=== PATIENT | female | born 1950 | race Caucasian/White ===

== ENCOUNTER 2017-01-31 14:34 | Emergency (ER) | payer MEDICAID ==
[2017-01-31 14:44] VITALS: BP 154/70
[2017-01-31] MEDS ORDERED: predniSONE 20 MG TABLET PO STA (15:05)
--- NOTE | 2017-01-31 15:08 | ED Physician Documentation ---
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, she was stung by wasp on the right thumb about an hour and a half ago, she has localized pain and swelling but no shortness of breath, generalized rash, dizziness, nausea, or rhinorrhea.) Review of Systems Constitutional: denies: Fever, Chills Cardiac: denies: Chest pain / pressure, Palpitations Respiratory: denies: Dyspnea, Cough PD PAST MEDICAL HISTORY - Past Medical History Past Medical History: No - Past Surgical History Past Surgical History: Yes /[employer]: Endometrial ablation, Dilation and currettage HEENT: Tonsil/Adenoidectomy - Present Medications Home Medications: Ambulatory Orders Medication Instructions Recorded Confirmed Epinephrine 0.3 mg IJ ONCE PRN #2 auto.injct 01/31/17 predniSONE [Deltasone] 60 mg PO DAILY 3 Days tablet 01/31/17 - Allergies Allergies/Adverse Reactions: Allergies Allergy/AdvReac Type Severity Reaction Status Date / Time No Known Drug Allergies Allergy Verified 01/31/17 14:45 - Social History Does the pt smoke?: No Smoking Status: Never smoker Does the pt drink ETOH?: Yes Does the pt have substance abuse?: No - Immunizations Immunizations are current?: No - POLST Patient has POLST: No PD ED PE NORMAL - Vitals Vital signs reviewed: Yes - General General: Alert and oriented X 3, No acute distress - HEENT HEENT: Pharynx benign - Respiratory Respiratory: No respiratory distress, Clear bilaterally - Extremities Extremities: Other (Mild redness and swelling to the right thumb without retained stinger.) - Neuro Neuro: Alert and oriented X 3, Normal speech - Psych Psych: Normal mood, Normal affect Results - Vitals Vitals: Vital Signs - 24 hr 01/31/17 14:39 Temperature 36.6 C Heart Rate 62 Respiratory 16 Rate Blood Pressure 154/70 H O2 Saturation 100 PD MEDICAL DECISION MAKING - ED course ED course: Despite her history of anaphylaxis, there is no current evidence of anaphylaxis. Departure - Departure Disposition: 01 Home, Self Care Clinical Impression: Local reaction to bee sting Qualifiers: Encounter type: initial encounter Injury intent: accidental or unintentional Qualified Code(s): T63.441A - Toxic effect of venom of bees, accidental ( unintentional), initial encounter Condition: Good Record reviewed to determine appropriate education?: Yes Instructions: ED Bite Sting Insect Local Allergic React Prescriptions: Epinephrine 0.3 mg IJ ONCE PRN #2 auto.injct PRN Reason: Allergy Symptoms predniSONE [Deltasone] 60 mg PO DAILY 3 Days tablet Comments: Your blood pressure was elevated today on check into the emergency department. This does not mean that you have hypertension, it is a common phenomenon to come to the emergency department and have elevated blood pressure. I recommend that she see your primary care physician within the week to have it rechecked when you are feeling better.
[2017-01-31] MEDS ORDERED: predniSONE 20 MG TABLET ONE (15:15)
== END 2017-01-31 15:14 | disposition home or self-care (01) ==
LOC: ED 14:34
DX: T63.441A Toxic effect of venom of bees, accidental (unintentional), initial encounter (principal); R22.9 Localized swelling, mass and lump, unspecified; R03.0 Elevated blood-pressure reading, without diagnosis of hypertension
CPT/HCPCS: 99283; J7512

== ENCOUNTER 2017-06-06 08:30 | Outpatient (CLI) | payer MEDICAID ==
--- NOTE | 2017-06-06 13:52 | Ultrasound Report ---
LEFT BREAST ULTRASOUND: 06/06/2017 CLINICAL INDICATION: Palpable abnormality left upper outer quadrant. TECHNIQUE: Real-time scanning was performed with retail field representative static images obtained. FINDINGS: Ultrasound of the palpable abnormality identified by the patient was performed. Unremarkable parenchymal lobules are seen. No discrete solid or cystic lesion is appreciated. No sonographically suspicious findings are seen. IMPRESSION: NEGATIVE EXAMINATION. RECOMMENDATION: Routine annual screening unless otherwise clinically indicated. BIRADS CATEGORY 1-NEGATIVE. TD: 06/06/2017 13:51
--- NOTE | 2017-06-06 18:21 | Mammography Report ---
DIGITAL DIAGNOSTIC BILATERAL MAMMOGRAM: 06/06/2017 CLINICAL INDICATION: Palpable abnormality left upper-outer quadrant on clinical exam. TECHNIQUE: Bilateral CC, laterally exaggerated CC, MLO, left true lateral views were obtained. A marker was placed at the site of palpable abnormality identified by the patient in the left upper outer quadrant. COMPARISON: 02/12/2015, 11/03/2010. FINDINGS: The breasts demonstrate scattered fibroglandular densities bilaterally. No suspicious masses, clustered microcalcifications, or regions of architectural distortion are identified. Specifically, no mammographic abnormality is appreciated in the left upper outer quadrant, at the site of palpable abnormality identified by the patient. Please also refer to left breast ultrasound of the same day. IMPRESSION: NEGATIVE EXAMINATION. RECOMMENDATION: Routine annual screening unless otherwise clinically indicated. BIRADS category: 1, negative. STANDARD QUALIFYING STATEMENTS 1. This examination was reviewed with the aid of Computed-Aided Detection (CAD). 2. A negative or benign imaging report should not delay biopsy if clinically suspicious findings are present. Consider surgical consultation if warranted. More than 5% of cancers are not identified by imaging. 3. Dense breasts may obscure an underlying neoplasm. TD: 06/06/2017 18:17
== END 2017-06-06 08:31 | disposition home or self-care (01) ==
LOC: DI 08:30
PROVIDERS: ATTEND Family Medicine
DX: N63.21 Unspecified lump in the left breast, upper outer quadrant (principal)
CPT/HCPCS: 76642; 77066

== ENCOUNTER 2018-04-24 12:43 | Outpatient (CLI) | payer MEDICARE, OTHER ==
--- NOTE | 2018-04-26 09:22 | DEXA Report ---
Reason: AGE-RELATED OSTEOPOROSIS W/O CURRENT PATHOLOGICAL Procedure Date: 04/24/2018 Accession Number: [id number] / [id number] Procedure: DEX - Dexa Spine and/or Hip CPT Code: FULL RESULT: EXAM: Dexa Spine and/or Hip DATE: 04/24/2018 1:24 PM CLINICAL HISTORY: AGE-RELATED OSTEOPOROSIS W/O CURRENT PATHOLOGICAL TECHNIQUE: Dual energy x-ray absorptiometry (DXA) was performed on a [employer] System. Regions measured are the AP Spine, femoral neck, and if needed forearm. COMPARISON: None. In accordance with the International Society for Clinical Densitometry (ISCD) guidelines, data from previous exams may be reanalyzed using current recommendations and techniques. This is done to allow a more accurate basis for comparison with the current study. FINDINGS: The data for the lumbar spine is as follows: BMD (g/cm/cm) T-SCORE Z-SCORE REGION L1 0.806 -2.7 -0.9 L2 0.852 -2.9 -1.1 L3 0.840 -3.0 -1.2 L4 0.888 -2.6 -0.8 TOTAL 0.849 -2.8 -1.0 NOTE: All evaluable vertebrae are used for classification The data for the hip is as follows: BMD (g/cm/cm) T-SCORE Z-SCORE REGION Neck 0.665 -2.7 -1.1 TOTAL 0.733 -2.2 -0.8 NOTE: The femoral neck or total proximal femur, whichever is lowest, is used for classification. IMPRESSION: THE WHO CLASSIFICATION BASED ON THE INTERNATIONAL REFERENCE STANDARD IS OSTEOPOROSIS. THE FRACTURE RISK IS HIGH. RECOMMENDATION: Patients with diagnosis of osteoporosis or osteopenia should have regular bone mineral density assessment. For those eligible for Medicare, routine testing is allowed once every 2 years. Testing frequency can be increased for patients who have rapidly progressing disease or for those who are receiving medical therapy to restore bone mass. COMMENT: World Health Organization (WHO) definitions for osteoporosis and osteopenia: NORMAL BMD: T-score at -1.0 or higher, fracture risk is low OSTEOPENIA BMD: T-score between -1.0 and -2.5, fracture risk is increased. OSTEOPOROSIS BMD: T-score at -2.5 or lower, fracture risk is high. National Osteoporosis Foundation recommends: 1. Obtain adequate dietary calcium (at least 1200 mg per day) and vitamin D (400-800 international units per day). 2. Participate, as appropriate, in regular weightbearing and muscle-strengthening exercise. 3. Avoid tobacco use and reduce alcohol and caffeine intake. 4. For more detailed information see the website at www.NOF.org.
== END 2018-04-24 12:44 | disposition home or self-care (01) ==
LOC: DI 12:43
PROVIDERS: ATTEND Family Medicine
DX: M81.0 Age-related osteoporosis without current pathological fracture (principal)
CPT/HCPCS: 77080

== ENCOUNTER 2020-03-31 09:27 | Outpatient (CLI) | payer MEDICARE ==
[2020-03-31 16:30] LABS: ALT ALANINE AMINOTRANSFERASE 32 IU/L (10-60); AST ASPARTATE AMINOTRANSFERASE 42 IU/L (10-42); CHOL/HDL RATIO 2.1 (<4.4); CHOLESTEROL 180 mg/dL; CK- CREATINE KINASE 144 IU/L (22-269); HDL CHOLESTEROL 87 mg/dL; LDL CHOLESTEROL,DIRECT 79 mg/dL
== END 2020-03-31 09:28 | disposition home or self-care (01) ==
LOC: LAB.S 09:27
PROVIDERS: ATTEND Internal Medicine Cardiovascular Disease
DX: E78.5 Hyperlipidemia, unspecified (principal)
CPT/HCPCS: 36415; 80061; 82550; 83721; 84450; 84460

== ENCOUNTER 2020-09-28 11:07 | Outpatient (CLI) | payer MEDICARE, OTHER ==
[2020-09-28 15:46] LABS: ALT ALANINE AMINOTRANSFERASE 34 IU/L (10-60); AST ASPARTATE AMINOTRANSFERASE 52 IU/L (10-42); CHOL/HDL RATIO 2.2 (<4.4); CHOLESTEROL 189 mg/dL; CK- CREATINE KINASE 187 IU/L (22-269); HDL CHOLESTEROL 85 mg/dL; LDL CHOLESTEROL,CALCULATED 94 mg/dL; LDL CHOLESTEROL,DIRECT 92 mg/dL; LDL/HDL RATIO 1.1 (<4.4); TRIGLYCERIDES 51 mg/dL; VLDL CHOLESTEROL 10 mg/dL
== END 2020-09-28 11:08 | disposition home or self-care (01) ==
LOC: LAB.S 11:07
PROVIDERS: ATTEND Internal Medicine Cardiovascular Disease
DX: E78.5 Hyperlipidemia, unspecified (principal)
CPT/HCPCS: 36415; 80061; 82550; 83721; 84450; 84460

== ENCOUNTER 2021-04-01 11:06 | Outpatient (CLI) | payer MEDICARE, OTHER ==
[2021-04-01 15:15] LABS: ALT ALANINE AMINOTRANSFERASE 32 IU/L (10-60); AST ASPARTATE AMINOTRANSFERASE 41 IU/L (10-42); CHOL/HDL RATIO 2.3 (<4.4); CHOLESTEROL 176 mg/dL; CK- CREATINE KINASE 131 IU/L (22-269); HDL CHOLESTEROL 76 mg/dL; LDL CHOLESTEROL,CALCULATED 92 mg/dL; LDL CHOLESTEROL,DIRECT 80 mg/dL; LDL/HDL RATIO 1.2 (<4.4); TRIGLYCERIDES 41 mg/dL; VLDL CHOLESTEROL 8 mg/dL
== END 2021-04-01 11:07 | disposition home or self-care (01) ==
LOC: LAB.S 11:06
PROVIDERS: ATTEND Internal Medicine Cardiovascular Disease
DX: E78.5 Hyperlipidemia, unspecified (principal)
CPT/HCPCS: 36415; 80061; 82550; 83721; 84450; 84460

== ENCOUNTER 2021-10-04 10:52 | Outpatient (CLI) | payer MEDICARE, OTHER ==
[2021-10-04 15:45] LABS: ALT ALANINE AMINOTRANSFERASE 22 IU/L (10-60); AST ASPARTATE AMINOTRANSFERASE 40 IU/L (10-42); CHOL/HDL RATIO 2.4 (<4.4); CHOLESTEROL 184 mg/dL; CK- CREATINE KINASE 222 IU/L (22-269); HDL CHOLESTEROL 78 mg/dL; LDL CHOLESTEROL,DIRECT 94 mg/dL; TRIGLYCERIDES 36 mg/dL
== END 2021-10-04 10:53 | disposition home or self-care (01) ==
LOC: LAB.S 10:52
PROVIDERS: ATTEND Internal Medicine Cardiovascular Disease
DX: E78.5 Hyperlipidemia, unspecified (principal)
CPT/HCPCS: 36415; 80061; 82550; 83721; 84450; 84460

== ENCOUNTER 2021-11-10 08:00 | Outpatient (CLI) | payer MEDICARE, OTHER | END 2021-11-10 23:59 | disposition home or self-care (01) | LOC: LAB.S 08:00 | PROVIDERS: ATTEND Registered Nurse | DX: R30.0 Dysuria (principal) | CPT/HCPCS: 87086; 87181 ==